=== PATIENT | female | born 1945 | race Hispanic/Latino ===

== ENCOUNTER 2016-12-31 08:13 | Emergency (ER) | payer MEDICARE, OTHER ==
[2016-12-31 08:16] VITALS: O2SAT 97
[2016-12-31 08:17] VITALS: BMI 23.1
[2016-12-31] MEDS ORDERED: Sodium Chloride 0.9% 1,000 ML IV STA (08:32)
[2016-12-31 08:50] LABS: BASO # 0.1 K/uL (0.0-0.2); BASO % 0.5 % (0.0-2.0); EOS # 0.2 K/uL (0.0-0.7); EOS % 1.2 % (0.0-4.0); HEMATOCRIT 42.1 % (34.0-47.0); LYMPH # 1.9 K/uL (1.0-4.3); LYMPH % 13.8 % (20.0-40.0); MEAN CELL VOLUME 85.8 fl (81.0-99.0); MEAN CORPUSCULAR HEMOGLOBIN 29.3 pg (27.0-31.0); MEAN CORPUSCULAR HGB CONC 34.1 g/dL (33.0-37.0); MEAN PLATELET VOLUME 9.2 fl (7.2-11.7); MONO # 0.5 K/uL (0.0-0.8); MONO % 3.9 % (0.0-10.0); NEUT # 11.2 K/uL (1.8-7.0); NEUT % 80.6 % (50.0-75.0); RED CELL DISTRIBUTION WIDTH 12.6 % (11.5-14.5); WHITE BLOOD COUNT 13.8 K/uL (4.8-10.8)
[2016-12-31 08:59] LABS: ALB/GLOB RATIO 1.3 (1.0-2.1); ALKALINE PHOSPHATASE 94 U/L (38-126); ALT/SGPT 30 U/L (9-52); AST/SGOT 22 U/L (14-36); BILIRUBIN,TOTAL 0.5 mg/dl (0.2-1.3); BLOOD UREA NITROGEN 15 mg/dl (7-17); CALCIUM 9.7 mg/dL (8.4-10.2); CARBON DIOXIDE 25 mmol/L (22-30); CHLORIDE 105 mmol/L (98-107); GFR AFRICAN-AMERICAN > 60; GLUCOSE,RANDOM 128 mg/dL (65-105); POTASSIUM 3.7 MMOL/L (3.6-5.0); SODIUM 144 mmol/l (132-148); TOTAL PROTEIN 7.8 G/DL (6.3-8.2)
[2016-12-31 09:01] LABS: VENOUS BLOOD GAS BASE EXCESS 2.9 mmol/L (0.0-2.0); VENOUS BLOOD GAS PCO2 34 mmHg (40-60); VENOUS BLOOD PH 7.49 (7.32-7.43)
[2016-12-31 09:01] LABS: PARTIAL THROMBOPLASTIN TIME 39.3 Seconds (25.6-37.1)
[2016-12-31 09:08] LABS: RBC URINE 1 /hpf (0-3); URINE BILIRUBIN NEGATIVE (NEGATIVE); URINE BLOOD NEGATIVE (NEGATIVE); URINE COLOR STRAW (YELLOW); URINE GLUCOSE (UA) NEG (Normal); URINE KETONE NEGATIVE (NEGATIVE); URINE LEUKOCYTE ESTERASE NEG Leu/uL (Negative); URINE PROTEIN NEGATIVE (NEGATIVE); URINE UROBILINOGEN 0.2-1.0 mg/dL (0.2-1.0); WBC URINE < 1 /hpf (0-5)
--- NOTE | 2016-12-31 09:24 | ED PDOC ---
HPI: General Adult Time Seen by Provider: 12/31/16 08:22 Chief Complaint (Nursing): Dizziness/Lightheaded Chief Complaint (Provider): Dizziness/Nausea History Per: Patient History/Exam Limitations: no limitations Current Symptoms Are (Timing): Still Present Additional Complaint(s): Nathalia Pool is a 71 year old female that presents to the ED with a chief complaint of dizziness and nausea that she has been experiencing for the past day. Patient's history of significant for recently being diagnosed with bronchitis, for which she was a given a prescription for Azithromycin and cough medicine. While in PMD's office, patient was found to be tachycardic, and was referred to a mobile designer, whom she has yet to see. Patient additionally complains of feeling heartburn this morning but denies shortness of breath, lower extremity pain or swelling, or syncope. She admits to a mild cough and general feelings of unwellness. Past Medical History Reviewed: Historical Data, Nursing Documentation, Vital Signs Vital Signs: Last Vital Signs Temp 96.3 F L 12/31/16 08:16 Pulse 116 H 12/31/16 08:16 Resp 16 12/31/16 08:16 BP 166/88 H 12/31/16 08:16 Pulse Ox 97 12/31/16 09:30 - Medical History PMH: Anxiety - Surgical History Other surgeries: hysterectomy - Family History Family History: States: Unknown Family Hx - Social History Current smoker - smoking cessation education provided: Yes - Allergies Allergies/Adverse Reactions: Allergies Allergy/AdvReac Type Severity Reaction Status Date / Time No Known Allergies Allergy Verified 12/31/16 08:31 Review of Systems Constitutional: Positive for: Weakness Cardiovascular: Positive for: Palpitations Gastrointestinal: Positive for: Nausea Neurological: Positive for: Dizziness Physical Exam - Reviewed Nursing Documentation Reviewed: Yes Vital Signs Reviewed: Yes - Physical Exam Appears: Positive for: Non-toxic, No Acute Distress Head Exam: Positive for: ATRAUMATIC, NORMOCEPHALIC Skin: Positive for: Normal Color, Warm, DRY Eye Exam: Positive for: EOMI, Normal appearance, PERRL Cardiovascular/Chest: Positive for: Regular Rate, Rhythm, Tachycardia. Negative for: Murmur Respiratory: Positive for: Normal Breath Sounds. Negative for: Wheezing Gastrointestinal/Abdominal: Positive for: Normal Exam, Soft. Negative for: Tenderness Extremity: Positive for: Normal ROM. Negative for: Pedal Edema (no lower extremity pain), Calf Tenderness (no calf pain) Neurologic/Psych: Positive for: Alert, Oriented. Negative for: Motor/Sensory Deficits - Laboratory Results Result Diagrams: 12/31/16 08:40 12/31/16 08:40 - ECG O2 Sat by Pulse Oximetry: 97 (RA) Pulse Ox Interpretation: Normal - Radiology X-Ray: Interpreted by Me (shows mild increased markings bilaterally) Medical Decision Making Medical Decision Making: Impression: Infection vs. Metabolic vs. Pulmonary vs. Thromboembolic Disease Plan: * Chest X-Ray * EKG * BNP * CBC * Total Creatinine Phosphokinase * TSH * Troponin * NaCl 1000 mLs at 1000 mLs/hr * Zofran 4 mg IV * Reevaluation Patient appears as sinus tachycardia on monitor, HR 122. Will work up for infection vs. metabolic vs. pulmonary vs. thromboembolic disease. EKG shows nonspecific changes and sinus tachycardia. Chest X-ray read by me, shows mild increased markings bilaterally. Labs reveal normal renal function, normal Hgb, trop and BNP normal, mild elevated WBC count and elevated D-Dimer, therefore will obtain CT Angio Chest. Accession No. : [id number] Patient Name / ID : KRISTOPHER GONZALES / [id number] Exam Date : 12/31/2016 09:47:05 ( Approved ) Study Comment : Sex / Age : F / 71Y Creator : Harriet Borges MD Dictator : Harriet Borges MD Photography Sales Associate : Jingle Writer : Harriet Borges MD Approver2 : Report Date : 12/31/2016 11:05:46 My Comment : This report is currently processing and HAS NOT BEEN OFFICIALLY SIGNED BY THE PHYSICIAN - ESTIMATED TIME OF APPROVAL IS 12/31/2016 11:10. PROCEDURE: CT Chest with contrast (Pulmonary Angiogram) HISTORY: tachycardia, smoker, elevated DDimer COMPARISON: Plain radiographs performed the same day TECHNIQUE: Axial computed tomography images were obtained of the chest in the pulmonary arterial phase of enhancement. Coronal and sagittal reformatted images were created and reviewed. Intravenous contrast dose: 100 mL Visipaque 320 Radiation dose: Total exam DLP = 363.11 mGy-cm. This CT exam was performed using one or more of the following dose reduction techniques: Automated exposure control, adjustment of the mA and/or kV according to patient size, and/or use of iterative reconstruction technique. FINDINGS: PULMONARY ARTERIES: There are no filling defects in the pulmonary arteries to suggest acute pulmonary embolism. AORTA: No aortic dissection or thoracic aortic aneurysm. LUNGS: There is a 7 mm nodular density with ill-defined margins in the right upper lobe (series 5, image 21). Otherwise, the lungs are well inflated and clear. No focal consolidation. There is minimal paraseptal emphysema in the apices. PLEURAL SPACES: No effusion or pneumothorax. HEART: The heart is normal in size. No pericardial effusion. LYMPH NODES: No pathologic hilar or mediastinal lymphadenopathy. BONES, CHEST WALL: Mild multilevel degenerative disc disease. No fracture or destructive lesion OTHER FINDINGS: There is a multinodular thyroid gland with enlargement of the right lobe. IMPRESSION: No CT evidence for acute pulmonary embolism. 7 mm ill-defined nodule in the right upper lobe which may represent inflammatory change or true parenchymal nodule, for which follow-up CT in 6 month interval is recommended to assess stability. patient monitored ~4hrs and now asymptomatic but remains w mild sinus tachycardia. Does not feel feverish, denies anxiety although takes ativan daily. Discussed w PMD Dr Bellamy, including pulm nodule, recommends discharge for outpatient workup as unremarkable labs, CTA. Patient instructed on all findings, will call Dr Bellamy in morning for cardio referral and pulm nodule workup. Smoking cessation recommended and discussed. Scribe Attestation: Documented by Roxana Morris, acting as a scribe for Hussain Barnes III, DO. Provider Scribe Attestation: All medical record entries made by the Scribe were at my direction and personally dictated by me. I have reviewed the chart and agree that the record accurately reflects my personal performance of the history, physical exam, medical decision making, and the department course for this patient. I have also personally directed, reviewed, and agree with the discharge instructions and disposition. Disposition - Clinical Impression Clinical Impression: Tachycardia - Patient ED Disposition Is Patient to be Admitted: No - Disposition Referrals: Brian Bellamy MD [Family Provider] - Disposition: Routine/Home Disposition Time: 12:38 Condition: STABLE Additional Instructions: Return to ER for any worse or new symptoms. Call Dr Bellamy in the morning for further testing and mobile designer referral. Drink plenty of fluids. Your CT scan showed a small lung nodule which will need further testing, please discuss with Dr Bellamy for further recommendations. Instructions: Palpitations (ED), Dizziness (ED) Forms: [employer] ([employer])
[2016-12-31 09:30] LABS: THYROID STIMULATING HORMONE 0.67 mIU/ML (0.46-4.68)
[2016-12-31] MEDS ORDERED: Iodixanol 320 MG/ML 100 ML BOTTLE IV ONE (09:43)
--- NOTE | 2016-12-31 10:06 | RAD ---
HISTORY: COMPARISON: No prior. TECHNIQUE: Chest PA and lateral FINDINGS: LINES AND TUBES: None. LUNG AND PLEURA: The lungs are hyperinflated and there is peribronchial thickening with chronic changes in both lungs. No focal consolidation. HEART AND MEDIASTINUM: The heart is not enlarged. The hilar and mediastinal contours are within normal limits. SKELETAL STRUCTURES: The bony structures are within normal limits for the patient's age. VISUALIZED UPPER ABDOMEN: Normal. OTHER FINDINGS: None. IMPRESSION: No active pulmonary disease. COPD. Upper
--- NOTE | 2016-12-31 11:07 | CT ---
PROCEDURE: CT Chest with contrast (Pulmonary Angiogram) HISTORY: tachycardia, smoker, elevated DDimer COMPARISON: Plain radiographs performed the same day TECHNIQUE: Axial computed tomography images were obtained of the chest in the pulmonary arterial phase of enhancement. Coronal and sagittal reformatted images were created and reviewed. Intravenous contrast dose: 100 mL Visipaque 320 Radiation dose: Total exam DLP = 363.11 mGy-cm. This CT exam was performed using one or more of the following dose reduction techniques: Automated exposure control, adjustment of the mA and/or kV according to patient size, and/or use of iterative reconstruction technique. FINDINGS: PULMONARY ARTERIES: There are no filling defects in the pulmonary arteries to suggest acute pulmonary embolism. AORTA: No aortic dissection or thoracic aortic aneurysm. LUNGS: There is a 7 mm nodular density with ill-defined margins in the right upper lobe (series 5, image 21). Otherwise, the lungs are well inflated and clear. No focal consolidation. There is minimal paraseptal emphysema in the apices. PLEURAL SPACES: No effusion or pneumothorax. HEART: The heart is normal in size. No pericardial effusion. LYMPH NODES: No pathologic hilar or mediastinal lymphadenopathy. BONES, CHEST WALL: Mild multilevel degenerative disc disease. No fracture or destructive lesion OTHER FINDINGS: There is a multinodular thyroid gland with enlargement of the right lobe. IMPRESSION: No CT evidence for acute pulmonary embolism. 7 mm ill-defined nodule in the right upper lobe which may represent inflammatory change or true parenchymal nodule, for which follow-up CT in 6 month interval is recommended to assess stability.
[2016-12-31 12:54] VITALS: BP 145/78; PULSE 76; RESP 18; TEMP 98.2
--- NOTE | 2016-12-31 16:33 | CARD ---
APPROVED REPORT EKG Measurement Heart [id number] <Conclusion> Sinus tachycardia Otherwise normal ECG
== END 2016-12-31 12:54 | disposition home or self-care (01) ==
LOC: H.ER 08:13
DX: R00.0 Tachycardia, unspecified (principal); J44.9 Chronic obstructive pulmonary disease, unspecified; F41.9 Anxiety disorder, unspecified; F17.200 Nicotine dependence, unspecified, uncomplicated; D72.829 Elevated white blood cell count, unspecified
CPT/HCPCS: 71020; 71275; 80053; 81003; 82550; 82803; 82948; 83880; 84443; 84484; 85025; 85378; 85610; 85730; 93005; 96374; 99284; J2405; J7040; Q9967